=== PATIENT | female | born 1975 | race Caucasian/White ===

== ENCOUNTER → 2017-03-21 | Outpatient (CLI) | payer BC | LOC: MC.RAD 08:20 | DX: Z12.31 Encounter for screening mammogram for malignant neoplasm of breast (principal) ==

== ENCOUNTER → 2018-04-03 | Outpatient (CLI) | payer BC | LOC: MC.RAD 08:40 | DX: Z12.31 Encounter for screening mammogram for malignant neoplasm of breast (principal) ==

== ENCOUNTER → 2019-05-09 | Outpatient (CLI) | payer OTHER | LOC: MC.RAD 04-04 07:00 | DX: Z12.31 Encounter for screening mammogram for malignant neoplasm of breast (principal) ==

== ENCOUNTER → 2020-05-19 | Outpatient (CLI) | payer OTHER | LOC: MC.RAD 07:00 | DX: Z12.31 Encounter for screening mammogram for malignant neoplasm of breast (principal) ==

== ENCOUNTER 2020-11-27 10:41 | Day surgery (SDC) | payer OTHER ==
[~2020-11-27] VITALS: Ht 175.3 cm; Wt 88.9 kg
[2020-11-27 11:19] VITALS: BP 114/80; PULSE 56; TEMP 98.3
[2020-11-27 12:45] VITALS: BP 118/50; PULSE 68
[2020-11-27 13:00] VITALS: BP 108/85; PULSE 54
--- NOTE | 2020-11-27 13:00 | NUR ---
The patient appears to be tolerating the food and drink well. Vital signs appear stable. Call light is within reach. Will continue to monitor the patient.
--- NOTE | 2020-11-27 13:03 | NUR ---
1242 PATIENT TO RECOVERY BAY 3 POST PROCEDURE VIA CART WITH Watson ALBERTS RN. AMBULATES TO CHAIR WITH ASSIST. VITAL SIGNS TAKEN. WARM BLANKET GIVEN, SITTING UP IN CHAIR. NO COMPLAINTS OF PAIN, NAUSEA OR DIZZINESS. DRY THROAT. ICE WATER AND HOT COCOA GIVEN TO DRINK.
[2020-11-27 13:15] VITALS: BP 112/77; PULSE 60
--- NOTE | 2020-11-27 13:15 | NUR ---
The patient is sitting up in the recliner and has finished eating her food and drink. Vital signs appear stable. Call light is within reach. Will continue to monitor the patient.
--- NOTE | 2020-11-27 13:25 | NUR ---
Discharge instructions were reviewed with the patient at this time. She verbalized understanding and has no questions for the nurse at this time. The patient's IV to her right hand was removed and a pressure dressing was applied to the site. The nurse instructed the patient to get and notify the staff when she is ready to be escorted out.
--- NOTE | 2020-11-27 13:30 | NUR ---
The patient was escorted out via wheelchair to a private vehicle by [facility]. The patient's belongings and discharge paperwork were sent with her. The patient's is present to drive her home.
== END 2020-11-27 13:30 | disposition home or self-care (01) ==
LOC: SDCO 10:41
DX: K44.9 Diaphragmatic hernia without obstruction or gangrene (principal); K64.0 First degree hemorrhoids; K62.5 Hemorrhage of anus and rectum; K62.89 Other specified diseases of anus and rectum; Z88.0 Allergy status to penicillin; K21.9 Gastro-esophageal reflux disease without esophagitis
CPT/HCPCS: J2704; J7120

== ENCOUNTER → 2021-08-12 | Outpatient (CLI) | payer OTHER | LOC: MC.RAD 08:00 | DX: Z12.31 Encounter for screening mammogram for malignant neoplasm of breast (principal) ==

== ENCOUNTER → 2024-08-21 | Outpatient (CLI) | payer OTHER | LOC: MC.RAD 07:44 | DX: Z12.31 Encounter for screening mammogram for malignant neoplasm of breast (principal); Z98.82 Breast implant status ==